=== PATIENT | female | born 1945 | race Caucasian/White ===

== ENCOUNTER 2017-01-07 12:33 | Day surgery (SDC) | payer MEDICARE, MEDICAID ==
[2017-01-07] VITALS (8 sets, daily range): BP systolic 84–137; BP diastolic 41–80; PULSE 49–69; TEMP 98.1
[~2017-01-07] VITALS: Ht 162.8 cm; Wt 109.0 kg
[~2017-01-07 12:33] MED LIST: 00186-0372-20 IH; ADVAIR 100/28 DISKU1 IH; ALDACTONE50 MG PO; AMOXICILLIN 8751 TAB PO; ASPIRIN 32325 MG/TAB PO; ASPIRIN 81M81 MG/TA2 PO; ASPRIN; BACTRIM DS 8001 TAB PO; COREG 3.123.125 MG/T PO; DEMADEX 20MG20 M1 PO; HEALTH CARE AM325 M1 PO; KEPPRA 500MG500 MG PO; KLOR-CON 1010 MEQ PO; LASIX 20MG TABL20 MG PO; LASIX 40MG TABL40 MG PO; LASIX40 MG PO; LEVAQUIN 5500 MG/TA1 PO; LEVAQUIN 750MG750 M1 PO; LISINOPRIL10 MG PO; LORTAB 5/500 501 TAB PO; MIRAPEX 0.125MG PO; MIRAPEX 1MG PO; MIRAPEX1 MG PO; NASONEX SPRAY17 GM NS; NORCO 325 MG-51 TAB PO; NORCO 325 MG-7.1 TAB PO; PAROXETINE30 MG PO; PAXIL 30MG30 MG PEG; PAXIL30 MG PO; PREDNISONE20 MG PO; PRIL40 PO; PROAIR HFA0.09 MG/AC IH; REGLAN 5MG T5 MG/TAB PO; SYSTANE LUBRICAN5 ML OP; TYLENOL 325MG325 MG PO; VICODIN 5/5001 UDTAB PO; VITAMIN D 400400 IU PO; VITAMIN D1000 IU PO; VITAMIN D2000 I1 PO; ZESTRIL 10MG10 MG PO; [UNRECOGNIZED DRUG - OTHER] PO; blood pressure med
[2017-01-07 13:30] LABS: HEMATOCRIT 41.7 % (37.0-47.0); HEMOGLOBIN 14.5 g/dl (12.5-16.0); MEAN CELL VOLUME 97 fl (80.0-100.0); MEAN CORPUSCULAR HEMOGLOBIN 34 pg (27.0-31.0); MEAN CORPUSCULAR HGB CONC 35 g/dl (33.0-37.0); MEAN PLATELET VOLUME 10.9 fl (7.4-10.4); PLATELET COUNT 252 K/mm3 (130-400); RED BLOOD COUNT 4.32 M/mm3 (4.10-5.30); REDCELL DISTRIBUTION WIDTH-CV 12.4 % (11.5-14.5); WHITE BLOOD COUNT 9.5 K/mm3 (4.8-10.8)
[2017-01-07] MEDS ORDERED: ASPI325T6 PO (13:30)
[2017-01-07] MEDS ORDERED: PROAIR HFA0.09 MG/AC IH (13:32)
[2017-01-07] MEDS ORDERED: NASONEX SPRAY17 GM NS (13:33)
[2017-01-07 13:36] LABS: CALCIUM 9.3 mg/dL (8.4-10.2); CREATININE, serum 0.65 mg/dL (0.52-1.25); INR 1.1 (0.8-3.0); POTASSIUM 4.2 mmol/L (3.4-5.0); PROTHROMBIN TIME 12.2 SECONDS (9.7-12.8)
[2017-01-08 01:07] VITALS: BP 115/68; PULSE 98; TEMP 98.5
[2017-01-08 05:28] VITALS: BP 103/47; PULSE 67; TEMP 97.8
[2017-01-08 09:48] VITALS: BP 101/61; PULSE 78; TEMP 98.3
[2017-01-08] MEDS ORDERED: CEPHALEXIN250 M1 PO (13:04)
[2017-01-08 14:19] VITALS: BP 106/62; PULSE 65; TEMP 98.3
== END 2017-01-08 15:29 | disposition home or self-care (01) ==
LOC: COL.CAR 12:33 → JCC 16:40 → COL.CAR 01-08 15:29
PROVIDERS: Internal Medicine Interventional Cardiology
DX: I45.5 Other specified heart block (principal); R00.1 Bradycardia, unspecified; R55 Syncope and collapse; R60.0 Localized edema; I87.2 Venous insufficiency (chronic) (peripheral); I10 Essential (primary) hypertension; Z86.73 Personal history of transient ischemic attack (TIA), and cerebral infarction without residual deficits; F17.210 Nicotine dependence, cigarettes, uncomplicated
CPT/HCPCS: OP; C1785; C1894; C1898; J0690; J1940; J2250; J3010; J7030

== ENCOUNTER → 2024-03-07 | Outpatient (CLI) | payer MEDICARE, MEDICAID ==
[~2024-03-07] MED LIST changes: +ASPI325T6 PO; +CEPHALEXIN250 M1 PO
[2024-03-07 10:45] LABS: BASO # 0.1 K/mm3 (0.0-0.2); BASO % 1.2 % (0.0-2.0); EOS # 0.3 K/mm3 (0.0-0.7); EOS % 3.2 % (0.0-4.0); GRAN # 5.5 K/mm3 (1.4-6.5); GRAN % 65.1 % (42.2-75.2); HEMATOCRIT 41.2 % (37.0-47.0); HEMOGLOBIN 14.2 g/dl (12.5-16.0); LYMPH # 1.8 K/mm3 (1.2-3.4); LYMPH % 21.2 % (20.0-51.0); MEAN CELL VOLUME 95 fl (80.0-100.0); MEAN CORPUSCULAR HEMOGLOBIN 33 pg (27-31); MEAN CORPUSCULAR HGB CONC 35 g/dl (33.0-37.0); MEAN PLATELET VOLUME 10.6 fl (7.4-10.4); MONO # 0.8 K/mm3 (0.1-0.6); MONO % 9.1 % (1.7-9.3); PLATELET COUNT 284 K/mm3 (130-400); RED BLOOD COUNT 4.32 M/mm3 (4.10-5.30); REDCELL DISTRIBUTION WIDTH-CV 12.7 % (11.5-14.5)
[2024-03-07 10:53] LABS: ALBUMIN 3.6 g/dL (3.4-4.8); BILIRUBIN,TOTAL 0.7 mg/dL (0.2-1.2); CALCIUM 9.9 mg/dL (8.4-10.2); CHOLESTEROL RISK RATIO 3.3; CREATININE, serum 0.98 mg/dL (0.57-1.11); POTASSIUM 4.2 mEq/L (3.5-4.5)
[2024-03-07 11:27] LABS: THYROID STIMULATING HORMONE 1.634 uIU/mL (0.350-4.940)
== END ==
LOC: COL.RAD 09:54
PROVIDERS: Nurse Practitioner
DX: M19.012 Primary osteoarthritis, left shoulder (principal); M19.011 Primary osteoarthritis, right shoulder; I10 Essential (primary) hypertension; E11.9 Type 2 diabetes mellitus without complications; E03.9 Hypothyroidism, unspecified; E78.5 Hyperlipidemia, unspecified; W19.XXXA Unspecified fall, initial encounter